=== PATIENT | female | born 1980 | race Caucasian/White ===

== ENCOUNTER 2019-01-21 15:22 | Emergency (ER) | payer MEDICAID ==
[~2019-01-21] VITALS: Ht 154.9 cm; Wt 50.1 kg
[~2019-01-21 15:22] MED LIST: PENICILLIN
--- NOTE | 2019-01-21 16:37 | NUR ---
[employer] SALESP[employer]: Patient ambulates with steady gait to room at this time.
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
[2019-01-21 18:39] VITALS: BP 109/63
== END 2019-01-21 18:44 | disposition home or self-care (01) ==
LOC: ED 18:00
DX: S00.83XA Contusion of other part of head, initial encounter (principal); Z88.1 Allergy status to other antibiotic agents; Y04.0XXA Assault by unarmed brawl or fight, initial encounter; Y93.89 Activity, other specified; Y92.89 Other specified places as the place of occurrence of the external cause; Y99.8 Other external cause status
CPT/HCPCS: 70450; 70486; 99284

== ENCOUNTER → 2019-11-13 | Outpatient (CLI) | payer MEDICAID ==
[~2019-11-13] MED LIST changes: +GADOTERATE 7.5 MMOL/15 ML SYR ONE
== END | disposition home or self-care (01) ==
LOC: RAD 13:25
PROVIDERS: ATTEND Internal Medicine
DX: R42 Dizziness and giddiness (principal); R41.0 Disorientation, unspecified; R41.3 Other amnesia; Z85.820 Personal history of malignant melanoma of skin
CPT/HCPCS: 70553; A9575